=== PATIENT | female | born 1975 | race American Indian/Alaskan Native ===

== ENCOUNTER 2018-03-26 14:40 | Emergency (ER) | payer MEDICAID ==
[2018-03-26 15:10] VITALS: BP 138/97
--- NOTE | 2018-03-26 15:59 | XRay Report ---
FINAL REPORT PROCEDURE: XR FOOT 3+V LT TECHNIQUE: LEFT foot radiographs, AP, lateral, and oblique views. CPT 11381 HISTORY: Heel pain COMPARISON: No prior studies are available for comparison. FINDINGS: Clothing or bandage artifact present on the patient's heel. Moderate size calcaneal spur is visualized at the Achilles tendon insertion site. No spur seen at the plantar fascia insertion site. No fracture or dislocation is seen. No radiopaque foreign bodies are identified. Mild osteoarthritic change and mild hallux valgus deformity seen MTP joint of the great toe. Joint spaces otherwise are well preserved. IMPRESSION: Calcaneal spur is present. Degenerative changes MTP joint great toe as described. No acute abnormalities are identified..
== END 2018-03-26 17:42 | disposition left against medical advice (07) ==
LOC: ED 14:40
DX: M79.605 Pain in left leg (principal); M25.572 Pain in left ankle and joints of left foot; Z53.21 Procedure and treatment not carried out due to patient leaving prior to being seen by health care provider